=== PATIENT | male | born 1955 | race Caucasian/White ===

== ENCOUNTER → 2016-10-06 | Outpatient (CLI) | payer OTHER | LOC: HEART 5 07:38 | DX: I20.9 Angina pectoris, unspecified (principal) | CPT/HCPCS: 78452; 93017; A9502; J2785 ==

== ENCOUNTER → 2016-11-13 | Outpatient (CLI) | payer OTHER | LOC: RAD 12:32 | DX: M25.511 Pain in right shoulder (principal); M54.2 Cervicalgia; M54.5 Low back pain; M54.17 Radiculopathy, lumbosacral region; M47.814 Spondylosis without myelopathy or radiculopathy, thoracic region; M48.54XA Collapsed vertebra, not elsewhere classified, thoracic region, initial encounter for fracture | CPT/HCPCS: 71020; 72070; 72110; 73030 ==

== ENCOUNTER → 2020-09-14 | Outpatient (CLI) | payer OTHER ==
[~2020-09-14] MED LIST: AMLODIPINE BESY10 MG PO; BETAPACE 80MG T80 MG PO; CLARITIN10 M2 PO; ECOTRIN81 MG PO; ESOMEPRAZOLE MA40 MG PO; GABAPENTIN800 MG PO; HYDROCHLOROTH12.5 MG PO; HYDROCODON-ACE1 EAC2 PO; ISOSORBIDE MONO30 MG PO; NITROSTAT 0.40.4 MG SL; PROAIR HFA8.5 GM INH
== END ==
LOC: RT 08:52
DX: I48.0 Paroxysmal atrial fibrillation (principal); R00.2 Palpitations

== ENCOUNTER → 2021-09-12 | Outpatient (CLI) | payer MEDICARE | LOC: HEART 5 07:52 | DX: I20.9 Angina pectoris, unspecified (principal) | CPT/HCPCS: 78452; A9502; J2785 ==

== ENCOUNTER → 2022-04-29 | Outpatient (CLI) | payer MEDICARE | LOC: HEART 5 12:56 | DX: R06.02 Shortness of breath (principal); I08.3 Combined rheumatic disorders of mitral, aortic and tricuspid valves | CPT/HCPCS: 93306 ==